=== PATIENT | female | born 1990 | race African-American/Black ===

== ENCOUNTER 2021-05-31 12:30 | Emergency (ER) | payer SELFPAY ==
[2021-06-01 08:19] LABS: SARS-CoV-2 PCR by NAA Not Detected (NotDetected)
== END 2021-05-31 13:30 | disposition home or self-care (01) ==
LOC: NAV ERS 12:30
DX: Z20.822 Contact with and (suspected) exposure to COVID-19 (principal)
CPT/HCPCS: 99283; U0003; U0005

== ENCOUNTER 2021-06-26 11:15 | Emergency (ER) | payer MEDICAID, SELFPAY ==
[2021-06-27 00:21] LABS: SARS-CoV-2 PCR by NAA DETECTED (NotDetected)
== END 2021-06-26 11:47 | disposition home or self-care (01) ==
LOC: NAV ERS 11:15
DX: U07.1 COVID-19 (principal)
CPT/HCPCS: 99283; U0003; U0005

== ENCOUNTER 2023-03-29 17:25 | Emergency (ER) | payer OTHER, MEDICAID ==
[2023-03-29] MEDS ORDERED: Boostrix 0.5 ML (Tdap) VIAL (>/=7 yrs of age) ONE (18:40)
[2023-03-29] MEDS ORDERED: Cyclobenzaprine 10 MG TAB ONE (18:40)
[2023-03-29] MEDS ORDERED: Ibuprofen 200 MG TAB ONE (18:40)
== END 2023-03-29 19:23 | disposition home or self-care (01) ==
LOC: NAV ERS 17:25
DX: S16.1XXA Strain of muscle, fascia and tendon at neck level, initial encounter (principal); S40.811A Abrasion of right upper arm, initial encounter; V89.2XXA Person injured in unspecified motor-vehicle accident, traffic, initial encounter; Z23 Encounter for immunization
CPT/HCPCS: 70450; 70486; 72125; 90471; 90715

== ENCOUNTER 2023-10-19 13:02 | Emergency (ER) | payer MEDICAID, OTHER ==
[2023-10-19] MEDS ORDERED: Ondansetron PF 4 MG/2 ML Vial ONE (13:09)
[2023-10-19] MEDS ORDERED: Lidocaine 1% (PF) 30 ML VIAL ONE (13:09)
[2023-10-19] MEDS ORDERED: Morphine 4 MG/ML VIAL ONE ×2 (13:09→14:32)
[2023-10-19] MEDS ORDERED: Amoxicillin/Potassium Clav 875 MG TAB ONE (16:17)
[2023-10-19] MEDS ORDERED: HYDROcodone/Acetaminophen 5/325 mg Tablet ONE (16:18)
== END 2023-10-19 16:40 | disposition home or self-care (01) ==
LOC: NAV ERS 13:02
DX: S68.122A Partial traumatic metacarpophalangeal amputation of right middle finger, initial encounter (principal); W23.1XXA Caught, crushed, jammed, or pinched between stationary objects, initial encounter
CPT/HCPCS: 11760; 96374; 96375; J2001; J2270; J2405